=== PATIENT | male | born 1990 | race Caucasian/White ===

== ENCOUNTER 2016-10-08 10:51 | Emergency (ER) | payer OTHER ==
[~2016-10-08] VITALS: Ht 182.9 cm; Wt 65.0 kg
[~2016-10-08 10:51] MED LIST: IBUP800T23 PO; ORPH100T PO
[2016-10-08 11:19] VITALS: BP 88/47; PULSE 86; RESP 20; TEMP 99.8; O2SAT 100
[2016-10-08 11:31] VITALS: BP 102/50; PULSE 88; RESP 20; O2SAT 100
[2016-10-08] MEDS ORDERED: VENTAER INH (11:55)
[2016-10-08] MEDS ORDERED: ZOFR4TAB PO (11:55)
[2016-10-08 11:57] VITALS: BP 106/70; PULSE 77; RESP 18; O2SAT 98
--- NOTE | 2016-10-08 11:58 | PD ---
HPI Chief Complaint: Cold / Flu Symptoms Time Seen by Provider: 11:40 Travel History International Travel<30 days: No Contact w/Intl Traveler<30days: No Traveled to known affect area: No History of Present Illness HPI This patient complains of cough and congestion and nausea and body aches and runny nose. He's had low-grade fever. Duration 6 days. No alleviating factors PFSH Past Medical History Medical History: Denies Significant Hx Cardiovascular Problems: No Chemotherapy: No Cerebrovascular Accident: No Diabetes: No Diminished Hearing: No Respiratory: No Immunizations Current: Yes Tetanus Vaccination: > 5 Years Influenza Vaccination: No Past Surgical History Surgical History: No Previous Surgery Hysterectomy: No Social History Alcohol Use: Yes (OCCASIONALLY) Tobacco Use: Yes (1 PPD) Substance Use: No (PT. DENIES) Allergies-Medications (Allergen,Severity, Reaction): Coded Allergies: No Known Allergies (Verified , 10/08/16) Reported Meds & Prescriptions Reported Meds & Active Scripts Active Review of Systems General / Constitutional: Positive: Fever HENT: Positive: Rhinorrhea, No: Headaches Respiratory: Positive: Cough Gastrointestinal: Positive: Nausea Physical Exam Narrative GENERAL: Well-nourished, well-developed patient in no apparent distress. SKIN: Warm and dry. HEAD: Atraumatic. Normocephalic. EYES: Pupils equal and round. No scleral icterus. No injection or drainage. ENT: No nasal bleeding but clear discharge. Mucous membranes pink and moist. Throat clear NECK: Trachea midline. No JVD. No meningeal signs CARDIOVASCULAR: Regular rate and rhythm. No murmur appreciated. RESPIRATORY: No accessory muscle use. Clear to auscultation. Breath sounds equal bilaterally. GASTROINTESTINAL: Abdomen soft, non-tender, nondistended. Hepatic and splenic margins not palpable. MUSCULOSKELETAL: No obvious deformities. No clubbing. No cyanosis. No edema. NEUROLOGICAL: Awake and alert. No obvious cranial nerve deficits. Motor grossly within normal limits. Normal speech. PSYCHIATRIC: Appropriate mood and affect; insight and judgment normal. Data Data Last Documented VS Vital Signs Date Time Temp Pulse Resp B/P Pulse Ox O2 Delivery O2 Flow Rate FiO2 10/08/16 11:31 92 100 Room Air 10/08/16 11:31 20 102/50 10/08/16 11:19 99.8 Orders Ondansetron Odt (Zofran Odt) (10/08/16 12:00) [facility] Medical Decision Making Medical Screen Exam Complete: Yes Emergency Medical Condition: Yes Medical Record Reviewed: Yes Differential Diagnosis Flu syndrome, bronchitis, URI Narrative Course I have reviewed the patient's electronic medical record. Presentation seems most consistent with an acute viral flu syndrome. Supportive care discussed. I recycled his blood pressure cuff it is 106 systolic He is not tachycardic or febrile at this time I prescribed him some Zofran and an albuterol inhaler. He should work on stopping smoking Follow-up with primary care Diagnosis Primary Impression: Flu syndrome Additional Instructions: The patient was advised to follow up with their physician and return if they worsen. Stop smoking Med/Other Pt SpecificInfo: Prescription(s) given Scripts Albuterol 18 GM Inh (Ventolin Hfa 18 GM Inh)90 Mcg/Act Aer1 Puff INH Q4H PRN ( SHORTNESS OF BREATH) #1 INHALER Ref 0 Prov:Moustapha Gutiérrez MD 10/08/16 Ondansetron (Zofran)4 Mg Tab4 Mg PO Q6HR PRN (NAUSEA OR VOMITING) #12 TAB Ref 0 Prov:Moustapha Gutiérrez MD 10/08/16 Disposition: 01 DISCHARGE HOME Condition: Stable Moustapha Gutiérrez MD Oct 08, 2016 11:58
[2016-10-08] MEDS ORDERED: ONDANSETRON ODT 4 MG TAB PO ONE (12:00)
== END 2016-10-08 12:10 | disposition home or self-care (01) ==
LOC: PHED 10:51
DX: J11.1 Influenza due to unidentified influenza virus with other respiratory manifestations (principal)
CPT/HCPCS: 99283

== ENCOUNTER 2017-04-23 16:09 | Emergency (ER) | payer SELFPAY ==
[~2017-04-23] VITALS: Ht 182.9 cm; Wt 63.2 kg
[~2017-04-23 16:09] MED LIST changes: -IBUP800T23 PO; -ORPH100T PO; +VENTAER INH; +ZOFR4TAB PO
[2017-04-23 16:14] VITALS: BP 114/65; PULSE 89; RESP 18; TEMP 100.3; O2SAT 98
--- NOTE | 2017-04-23 16:56 | PD ---
HPI Chief Complaint: ENT Complaint Time Seen by Provider: 16:40 Travel History International Travel<30 days: No Contact w/Intl Traveler<30days: No Traveled to known affect area: No History of Present Illness HPI 26-year-old male presents to the emergency room for evaluation of nonproductive cough, congestion, itchy throat, itchy eyes, nausea, vomiting, and fever for the past 2 days. He has not taken his temperature at home but has had chills and night sweats. He has been taking [id number] allergy medication, DayQuil, and NyQuil without any relief in symptoms. Patient does smoke. He denies chronic medical conditions or daily medications. Denies earache. PFSH Past Medical History Cardiovascular Problems: No Chemotherapy: No Cerebrovascular Accident: No Diabetes: No Diminished Hearing: No Respiratory: No Immunizations Current: Yes Influenza Vaccination: No ?: Not Past Surgical History Hysterectomy: No Social History Alcohol Use: Yes (OCCASIONALLY) Tobacco Use: Yes (1 PPD) Substance Use: No (PT. DENIES) Allergies-Medications (Allergen,Severity, Reaction): Coded Allergies: No Known Allergies (Verified , 04/23/17) Reported Meds & Prescriptions Reported Meds & Active Scripts Active Zofran (Ondansetron HCl) 4 Mg Tab 4 Mg PO Q6HR PRN Ventolin Hfa 18 GM Inh (Albuterol Sulfate) 90 Mcg/Act Aer 1 Puff INH Q4H PRN Review of Systems Except as stated in HPI: all other systems reviewed are Neg Physical Exam Narrative GENERAL: Well-nourished, well-developed male in no acute distress. Very slightly febrile. Ambulatory. SKIN: Focused skin assessment warm/dry. HEAD: Normocephalic. EYES: No scleral icterus. No injection or drainage. NECK: Supple, trachea midline. No JVD or lymphadenopathy. ENT: Mucosa pink and moist. No significant erythema, edema, or exudates. No uvular edema. No uvular, palatal, or tonsillar deviation. Airway patent. Nasal turbinates appear normal without nasal blood, purulent drainage or septal hematoma. EARS: Bilateral pinnae and external canals appear within normal limits. Bilateral tympanic membranes without erythema, dullness or perforation. CARDIOVASCULAR: Regular rate and rhythm without murmurs, gallops, or rubs. RESPIRATORY: Breath sounds equal bilaterally. No accessory muscle use. Bilateral wheezes that clear with coughing. Data Data Last Documented VS Vital Signs Date Time Temp Pulse Resp B/P Pulse Ox O2 Delivery O2 Flow Rate FiO2 04/23/17 16:14 100.3 89 18 114/65 98 Orders Influenzae A/B Antigen (04/23/17 16:50) Chest, Pa & Lat (04/23/17 ) MDM Medical Decision Making Medical Screen Exam Complete: Yes Emergency Medical Condition: Yes Medical Record Reviewed: Yes Differential Diagnosis Upper respiratory infection, pneumonia, influenza, bronchitis Narrative Course 26-year-old male presents to the emergency room or evaluation of cold and flu symptoms for the past 2 days. Symptoms include nausea, vomiting, cough, congestion, itchy throat and itchy ears, and malaise. Patient is slightly febrile 100.3 in the emergency room. Resting in bed. Rarely coughing. Physical exam reveals bilateral wheezes in all wright. No evidence of bacterial infection in the ears, sinuses, or throat. Rapid influenza and chest x-ray are negative. History and physical exam are consistent with viral syndrome. Patient will be discharged with inhaler and Zofran and told to follow -up with the primary care physician or return to the emergency room for worsening symptoms. He understands and agrees to plan. Diagnosis Primary Impression: Flu syndrome Referrals: Primary Care Physician Patient Instructions: General Instructions, Viral Syndrome (ED) Additional Instructions: Rest and drink plenty of fluids. Take Zofran as directed, as needed for nausea. Use inhaler as directed, as needed for shortness of breath cough, or wheezing. Follow-up with a primary care physician. Return to the emergency room for worsening symptoms. Med/Other Pt SpecificInfo: Prescription(s) given Scripts Ondansetron (Zofran)4 Mg Tab4 Mg PO Q6HR PRN (NAUSEA OR VOMITING) #12 TAB Ref 0 Prov:Martin Quinonez MD 04/23/17 Albuterol 18 GM Inh (Ventolin Hfa 18 GM Inh)90 Mcg/Act Aer1 Puff INH Q4H PRN ( SHORTNESS OF BREATH) #1 INHALER Ref 0 Prov:Martin Quinonez MD 04/23/17 Disposition: 01 DISCHARGE HOME Condition: Stable Josee Villareal Apr 23, 2017 16:56
--- NOTE | 2017-04-23 17:18 | RADRPT ---
EXAM DATE/TIME: 04/23/2017 17:00 [facility] COMPARISON: CHEST PA & LAT, August 27, 2015, 10:15. INDICATIONS : Cough and fever. MEDICAL HISTORY : Smoker SURGICAL HISTORY : None. ENCOUNTER: Initial ACUITY: 2 days PAIN SCORE: 0/10 LOCATION: Bilateral chest FINDINGS: PA and lateral views of the chest. The lungs are clear. Cardiomediastinal silhouette within normal li mits. No evidence of pleural effusion or pneumothorax. CONCLUSION: No acute cardiopulmonary disease identified. Laith Fulton MD on April 23, 2017 at 17:16 Board Certified Radiologist. This report was verified electronically.
[2017-04-23] MEDS ORDERED: VENTAER INH (17:51)
[2017-04-23] MEDS ORDERED: ZOFR4TAB PO (17:51)
[2017-04-23 18:03] VITALS: BP 116/76
== END 2017-04-23 18:04 | disposition home or self-care (01) ==
LOC: PHEFT 16:09
DX: J11.1 Influenza due to unidentified influenza virus with other respiratory manifestations (principal); F17.200 Nicotine dependence, unspecified, uncomplicated
CPT/HCPCS: 71020; 87804; 99284

== ENCOUNTER 2017-10-18 13:13 | Emergency (ER) | payer SELFPAY ==
[~2017-10-18] VITALS: Ht 182.9 cm; Wt 65.0 kg
[2017-10-18 13:23] VITALS: BP 99/57; PULSE 79; RESP 16; TEMP 99.6; O2SAT 96
[2017-10-18] MEDS ORDERED: RESP: ALBUTEROL 2.5 MG/IPRATROPIUM 0.5 MG NEB (SCH) INH ONE (13:45)
[2017-10-18] MEDS ORDERED: predniSONE 20 MG TAB PO ONE (13:45)
--- NOTE | 2017-10-18 13:46 | PD ---
HPI Chief Complaint: Cold / Flu Symptoms Time Seen by Provider: 13:38 Travel History International Travel<30 days: No Contact w/Intl Traveler<30days: No Traveled to known affect area: No History of Present Illness HPI Patient comes to emergency department with concern for possible influenza. Patient states symptoms have been going on and off for the past 2-3 weeks. Most recently symptoms began a week ago. Patient reports subjective fevers, productive cough, generalized body aches, and nausea. Patient has been using [id number]-[id number] medication that seems to help some. Denies anything making it worse. Patient reports that he is coughing up "nasty phlegm". Denies any chest pain, shortness of breath, abdominal pain, loss or change in bowel or bladder, vomiting, neck pain, or headaches. Denies any radiation of pain. PFSH Past Medical History Medical History: Denies Significant Hx Cardiovascular Problems: No Chemotherapy: No Cerebrovascular Accident: No Diabetes: No Diminished Hearing: No Respiratory: No Immunizations Current: Yes Influenza Vaccination: No Past Surgical History Surgical History: No Previous Surgery Hysterectomy: No Social History Alcohol Use: Yes (OCCASIONALLY) Tobacco Use: Yes (1 PPD) Substance Use: Yes (Marijuana) Allergies-Medications (Allergen,Severity, Reaction): Coded Allergies: No Known Allergies (Verified Adverse Reaction, Unknown, 10/18/17) Reported Meds & Prescriptions Reported Meds & Active Scripts Active Zithromax Z-Rudy (Azithromycin) 250 Mg Dspk 250 Mg PO DIRECTED 500 MG (2 tabs) day 1, then 1 tab days 2-5. Prednisone (21) 10 mg tab Dose Pack (Prednisone) 10 Mg Pack 10 Mg PO DIRECTED Ventolin Hfa 18 GM Inh (Albuterol Sulfate) 90 Mcg/Act Aer 2 Puff INH Q4H PRN Review of Systems Except as stated in HPI: all other systems reviewed are Neg Physical Exam Narrative GENERAL: Well-developed, well nourished, in no acute distress, and non-ill appearing. SKIN: Focused skin assessment warm and dry. HEAD: Atraumatic. Normocephalic. EYES: Pupils equal and round. EOMI. No scleral icterus. No injection or drainage. ENT: No nasal bleeding or discharge. Mucous membranes pink and moist. Tympanic membranes partially obscured by cerumen but are pearly lopez bilaterally. Posterior pharynx nonerythematous without exudate. Uvula is midline. No tenderness to facial sinuses to palpation. NECK: Trachea midline. No cervical lymphadenopathy. Supple. No nuclear rigidity. CARDIOVASCULAR: Regular rate and rhythm. No murmur appreciated. RESPIRATORY: No accessory muscle use. No respiratory distress. Clear to auscultation. Breath sounds equal bilaterally. MUSCULOSKELETAL: No obvious deformities. No clubbing. No cyanosis. No edema. Full range of motion. NEUROLOGICAL: Awake and alert. No obvious cranial nerve deficits. Motor grossly within normal limits. Normal speech. PSYCHIATRIC: Appropriate mood and affect; insight and judgment normal. Data Data Last Documented VS Vital Signs Date Time Temp Pulse Resp B/P (MAP) Pulse Ox O2 Delivery O2 Flow Rate FiO2 10/18/17 13:35 96 Room Air 10/18/17 13:23 99.6 79 16 99/57 (71) Orders Orders Albuterol-Ipratropium Neb (Duoneb Neb) (10/18/17 13:45) Prednisone (Deltasone) (10/18/17 13:45) Influenzae A/B Antigen (10/18/17 13:42) Group A Rapid Strep Screen (10/18/17 13:42) Chest, Single Ap (10/18/17 ) Strep Culture (Group A) (10/18/17 14:02) Ed Discharge Order (10/18/17 15:25) [facility] Medical Decision Making Medical Screen Exam Complete: Yes Emergency Medical Condition: Yes Interpretation(s) X-ray reviewed shows no acute disease. Radiologist to over read. Differential Diagnosis Influenza, strep pharyngitis, URI, bronchitis, pneumonia, COPD Narrative Course Patients symptom complex is consistent with bronchitis. The patient is non-ill appearing and is in no respiratory distress and comfortable. The patient moves air well and oxygen saturations are normal. Chest x-ray revealed no evidence of obvious consolidation of infiltrate. There is no clinical evidence to suggest pneumonia at this time. Plan of care and management were discussed with the patient who agreed with plan. The patient was instructed to follow up with their physician and instructed to return if worsens, progressively worsening shortness of breath or difficulty breathing, persistent fever, chest pains or discomfort, inability to keep medication or fluids down with or without vomiting , or as needed. Patient in no obvious distress upon re-evaluation. All pertinent laboratory/ Radiology result(s) discussed with patient. Patient was asked if they wanted to speak to my attending, which the patient did not wish to do at this time. Any questions/concerns in reference to patient diagnosis/condition discussed and clarified prior to patient's discharge. Reinforced sheer importance of close follow up with patient's primary physician or primary care clinic. Instructed patient to return to ED immediately, if symptoms return/worsen. Patient showed understanding of above instructions. Further instructions and recommendations were detailed in discharge paperwork. Patient ambulated without difficulty out of ED at discharge. Diagnosis Primary Impression: Bronchitis Referrals: [facility] Patient Instructions: Acute Bronchitis (ED), General Instructions Additional Instructions: Follow-up with your primary care physician in 3-5 days for evaluation. Take all medication as prescribed. Drink plenty of non-caffeinated and nonalcoholic fluids. Stop smoking. Return to the emergency department if symptoms get worse. Med/Other Pt SpecificInfo: Prescription(s) given Scripts Azithromycin (Zithromax Z-Rudy) 250 Mg Dspk 250 MG PO DIRECTED for Infection, #1 DSPK 0 Refills 500 MG (2 tabs) day 1, then 1 tab days 2-5. Prov: Keenan Le MD 10/18/17 Prednisone (21) 10 mg tab Dose Pack (Prednisone (21) 10 mg tab Dose Pack) 10 Mg Pack 10 MG PO DIRECTED for Inflammation, #1 DSPK 0 Refills Prov: Keenan Le MD 10/18/17 Albuterol 18 GM Inh (Ventolin Hfa 18 GM Inh) 90 Mcg/Act Aer 2 PUFF INH Q4H Y for COUGH, #1 INHALER 0 Refills Prov: Keenan Le MD 10/18/17 Disposition: 01 DISCHARGE HOME Condition: Stable Rober Ca Oct 18, 2017 13:46
[2017-10-18] MEDS ORDERED: ZITHTAB PO (15:24)
[2017-10-18] MEDS ORDERED: VENTAER INH (15:24)
[2017-10-18] MEDS ORDERED: PRED10PA PO (15:24)
--- NOTE | 2017-10-18 15:26 | RADRPT ---
EXAM DATE/TIME: 10/18/2017 14:09 [facility] COMPARISON: CHEST PA & LAT, April 23, 2017, 17:00. INDICATIONS : Flu like symptoms. Fever, cough, body aches, nausea,. MEDICAL HISTORY : None. SURGICAL HISTORY : None. ENCOUNTER: Initial ACUITY: 3 weeks PAIN SCORE: 0/10 LOCATION: Bilateral chest FINDINGS: No new focal pleural or parenchymal opacities. Cardiomediastinal contours are within normal limits. B karishma thorax is intact. CONCLUSION: 1. No acute abnormality or significant interval change. Praveen Richter MD on October 18, 2017 at 15:23 Board Certified Radiologist. This report was verified electronically.
== END 2017-10-18 15:31 | disposition home or self-care (01) ==
LOC: PHEFT 13:13
DX: J40 Bronchitis, not specified as acute or chronic (principal); F17.210 Nicotine dependence, cigarettes, uncomplicated
CPT/HCPCS: 71045; 87081; 87804; 87880; 94664; 99283; J7512